=== PATIENT | female | born 1970 | race American Indian/Alaskan Native ===

== ENCOUNTER 2016-09-07 14:40 | Outpatient (CLI) | payer OTHER ==
--- NOTE | 2016-09-08 09:42 | Mammography Report ---
Bilateral mammogram: No previous studies available. CAD study utilized. Findings: Predominantly adipose tissue bilaterally. Focal asymmetry upper anterior right breast. No mass. No microcalcification. Normal axilla. Impression: Focal asymmetry upper anterior right breast. Recommend comparison with previous studies. If previous studies are not available spot magnification and if necessary sonographic examination advised. BI-RADS CATEGORY: 0 = Needs additional imaging evaluation ACR BI-RADS MAMMOGRAPHIC CODES: 0 = Needs additional imaging evaluation; 1 = Negative; 2 = Benign; 3 = Probably benign; 4 = Suspicious; 5 = Malignant; 6 = Known biopsy-proven malignancy COMMENT: 1. Dense breast tissue, i.e., adenosis, fibrocystic changes, etc., may obscure an underlying neoplasm. 2. Approximately 10% of cancers are not detected with mammography. 3. A negative mammography report should not delay biopsy if a clinically suspicious mass is present. COMMENT: Patient follow-up letters are generated in [employer].
== END 2016-09-07 14:41 | disposition home or self-care (01) ==
LOC: MAMMO 14:40
PROVIDERS: ATTEND Obstetrics & Gynecology
DX: Z12.31 Encounter for screening mammogram for malignant neoplasm of breast (principal)
CPT/HCPCS: 77067; G0202

== ENCOUNTER 2016-11-28 14:02 | Outpatient (CLI) | payer OTHER ==
--- NOTE | 2016-11-28 14:31 | Mammography Report ---
RIGHT DIGITAL DIAGNOSTIC MAMMOGRAM : 11/28/16 14:02:00 CLINICAL: Recalled for asymmetry. COMPARISON:09/07/16 screening FINDINGS: Lateralmedial and spot compression MLO views were performed. Satisfactory effacement of the previously described asymmetry on the spot view. The lateral view is negative. IMPRESSION: Negative Mammogram. BI-RADS CATEGORY: 1 -- Negative RECOMMENDATION: Routine mammographic screening in one year. ACR BI-RADS MAMMOGRAPHIC CODES: 0 = Needs additional imaging evaluation; 1 = Negative; 2 = Benign; 3 = Probably benign; 4 = Suspicious; 5 = Malignant; 6 = Known biopsy-proven malignancy COMMENT: 1. Dense breast tissue, i.e., adenosis, fibrocystic changes, etc., may obscure an underlying neoplasm. 2. Approximately 10% of cancers are not detected with mammography. 3. A negative mammography report should not delay biopsy if a clinically suspicious mass is present. COMMENT: Patient follow-up letters are generated via our [employer] application.
== END 2016-11-28 14:03 | disposition home or self-care (01) ==
LOC: MAMMO 14:02
PROVIDERS: ATTEND Obstetrics & Gynecology
DX: R92.2 Inconclusive mammogram (principal)
CPT/HCPCS: G0206-RT

== ENCOUNTER 2019-10-14 21:38 | Outpatient (CLI) | payer OTHER ==
[2019-10-14 21:56] VITALS: BP 137/80
--- NOTE | 2019-10-14 22:26 | Event Note ---
Date: 10/14/19 (Pt fell down stairs.) 48 y.o. @ 38 weeks that presented to triage after falling down the stairs. She states that she had on slippery shoes and lost her footing which caused her to fall on her bottom. Denies hitting her abdomen. She denies vag bleeding, LOF, ctxs. Will observe for two hours in triage. KB stain and ultrasound ordered to rule out abruption.
--- NOTE | 2019-10-15 00:03 | Ultrasound Report ---
ULTRASOUND OBSTETRIC Indication: Rule out placental abruption. Findings: There is a single, living intrauterine . No evidence of an abruption. The placenta is situated fundally and left laterally. heart rate is 148 beats per minute. The ovaries are normal. There is no free fluid. Impression: No convincing evidence of placenta abruption Signer Name: Yash Ware MD Signed: 10/14/2019 11:59 PM Workstation Name: [id number]
== END 2019-10-15 00:29 | disposition home or self-care (01) ==
LOC: TRG 21:38
PROVIDERS: ATTEND Obstetrics & Gynecology
DX: O26.893 Other specified pregnancy related conditions, third trimester (principal); M54.5 Low back pain; W19.XXXA Unspecified fall, initial encounter; Y93.89 Activity, other specified; Y92.89 Other specified places as the place of occurrence of the external cause; Y99.8 Other external cause status; Z3A.39 39 weeks gestation of pregnancy
CPT/HCPCS: 59025; 76815; 85460